=== PATIENT | female | born 1965 | race Two or more races ===

== ENCOUNTER → 2024-12-29 | Outpatient (CLI) | payer BC, SELFPAY ==
[2024-12-29 09:52] LABS: Collection Type, Urine Clean Catch
[2024-12-29 10:27] LABS: Basophils # (Auto) 0.1 Thou/mm3 (0.0-0.2); Basophils % (Auto) 1 % (0-2.5); Eosinophils # (Auto) 0.3 Thou/mm3 (0.0-0.5); Eosinophils % (Auto) 4 % (0-10); Hematocrit 40.9 % (36.0-46.0); Hemoglobin 13.6 g/dL (12.0-16.0); Immature Granulocytes Auto 0.02 Thou/mm3 (0.00-0.00); Lymphocytes # (Auto) 1.5 Thou/mm3 (1.0-4.8); Lymphocytes % (Auto) 20 % (10-50); Mean Corpuscular HGB Conc 33.3 g/dl (31.0-37.0); Mean Corpuscular Hemoglobin 29.8 pg (25.0-35.0); Mean Corpuscular Volume 90 fL (80-100); Monocytes # (Auto) 0.6 Thou/mm3 (0.0-0.8); Monocytes % (Auto) 9 % (0-12); Neutrophils # (Auto) 5.0 Thou/mm3 (1.8-7.7); Neutrophils % (Auto) 67 % (37-80); Nucleated Red Blood Cell # 0.00 Thou/mm3 (0.00-0.00); Nucleated Red Blood Cell % 0 /100 WBC (0); Platelet Count 269 Thou/mm3 (140-440); RDW Standard Deviation 44.6 fL (36.4-46.3); Red Blood Count 4.57 Miln/mm3 (4.00-5.20); White Blood Count 7.4 Thou/mm3 (3.6-11.0)
[2024-12-29 10:44] LABS: Bacteria,Urine 3+; Bilirubin,Urine Negative (Negative); Blood,Urine Negative (Negative); Color,Urine Yellow (Lt Yel-Yel); Culture Indicated,Urine Contaminated; Glucose, Urine Negative (Negative); Ketones,Urine Negative (Negative); Leukocyte Esterase,Urine Positive (Negative); Nitrite,Urine Positive (Negative); PH,Urine 6.0 (5.0-7.0); Protein,Urine Trace (Neg - Trace); RBC,Urine 3 /hpf (0-3); Specific Gravity,Urine 1.021 (1.001-1.035); Squamous Epithelial Cell,Urine 11 /hpf (0-5); Urobilinogen,Urine Negative mg/dL (0.0-1.0); WBC,Urine 68 /hpf (0-5)
[2024-12-29 10:45] LABS: Vitamin D 25 Hydroxy Total 33.4 ng/mL (7.3-40.2)
[2024-12-29 10:47] LABS: Clarity,Urine Hazy (Clear/Hazy)
[2024-12-29 10:56] LABS: Alanine Aminotransferase 88 U/L (10-49); Albumin, Serum 4.4 gm/dL (3.5-5.0); Albumin/Globulin Ratio 1.8 (1.2-2.2); Alkaline Phosphatase 107 U/L (46-116); Anion Gap 8 (7-16); Aspartate Amino Transferase 77 U/L (0-34); BUN/Creatinine Ratio 13 Ratio (12-20); Bilirubin,Total 0.5 mg/dL (0.3-1.2); Blood Urea Nitrogen 12 mg/dL (9-23); Calcium 9.7 mg/dL (8.3-10.6); Calcium (Corrected) 9.7 mg/dL (8.5-10.1); Carbon Dioxide 28.9 mMol/L (20.0-31.0); Cardiac Risk Estimate 3.0 RATIO (3.7-5.6); Chloride 104 mMol/L (98-107); Cholesterol 196 mg/dL (132-200); Creatinine (Component) 0.9 mg/dL (0.6-1.3); Globulin 2.5 gm/dL (2.3-3.5); Glucose 104 mg/dL (74-106); HDL Cholesterol 66 mg/dL (40-60); LDL Cholesterol,Calculated 107 mg/dL (0-130); Osmolality,Calculated 280 (275-295); Potassium 4.4 mMol/L (3.4-5.1); Sodium 141 mMol/L (136-145); Thyroid Stimulating Hormone 0.99 uIU/mL (0.55-4.78); Total Protein 6.9 gm/dL (5.7-8.2); Triglycerides 117 mg/dL (30-150); eGFR > 60 See Note
[2024-12-29 11:04] LABS: Creatinine MALB Rnd Ur 222 mg/dL (30-125); Microalbumin Creat Ratio 13 mg/gCrea (<30); Microalbumin, Random Urine 28 mg/L (0-300)
== END | disposition home or self-care (01) ==
PROVIDERS: PCP Nurse Practitioner Family; Referring Provider Nurse Practitioner Family; Visit Provider Nurse Practitioner Family
DX: Z00.00 Encounter for general adult medical examination without abnormal findings (principal); E55.9 Vitamin D deficiency, unspecified; E03.9 Hypothyroidism, unspecified; R10.9 Unspecified abdominal pain; E78.2 Mixed hyperlipidemia; N39.0 Urinary tract infection, site not specified; Z79.899 Other long term (current) drug therapy; Z13.29 Encounter for screening for other suspected endocrine disorder; Z13.1 Encounter for screening for diabetes mellitus; Z13.0 Encounter for screening for diseases of the blood and blood-forming organs and certain disorders involving the immune mechanism
CPT/HCPCS: 36415; 80053; 80061; 81001; 82043; 82306; 82570; 84443; 85025